=== PATIENT | male | born 1980 | race Caucasian/White ===

== ENCOUNTER 2019-08-24 14:15 | Emergency (ER) | payer MEDICAID ==
[~2019-08-24] VITALS: Ht 170.2 cm; Wt 75.0 kg
[2019-08-24 14:26] VITALS: BP 164/90
[2019-08-24] MEDS ORDERED: METF-414 PO (14:29)
[2019-08-24] MEDS ORDERED: TETANUS, DIPHTHERIA, PERTUSSIS VAC/PF 0.5ML (>7YR OLD) IM ONE (17:45)
[2019-08-24] MEDS ORDERED: CEPHALEXIN 250MG CAPSULE PO ONE (17:45)
[2019-08-24] MEDS ORDERED: BACITRACIN ZINC OINT UDPKT TOP ONE (17:45)
[2019-08-24] MEDS ORDERED: LIDOCAINE HCL/PF 1% 10 MG/ML 5ML VIAL IJ ONE (17:45)
[2019-08-24] MEDS ORDERED: FLUORESCEIN SODIUM 1MG/STRIP RIGHTEYE ONE (18:00)
[2019-08-24] MEDS ORDERED: TETRACAINE 0.5% OPHTH DROPS 4ML RIGHTEYE ONE (18:00)
== END 2019-08-24 19:24 | disposition home or self-care (01) ==
LOC: ER 14:15
DX: S01.111A Laceration without foreign body of right eyelid and periocular area, initial encounter (principal); Y04.2XXA Assault by strike against or bumped into by another person, initial encounter; Y93.01 Activity, walking, marching and hiking; Y92.480 Sidewalk as the place of occurrence of the external cause; Z23 Encounter for immunization
CPT/HCPCS: 12013; 70450; 70486; 90471; 90715; 99284; Z7610

== ENCOUNTER 2019-08-24 16:05 | Emergency (ER) | payer MEDICAID ==
[~2019-08-24 16:05] MED LIST: METF-414 PO
== END 2019-08-24 17:24 | disposition home or self-care (01) ==
LOC: ER 16:05
DX: Z53.21 Procedure and treatment not carried out due to patient leaving prior to being seen by health care provider (principal)